=== PATIENT | male | born 1960 | race African-American/Black ===

== ENCOUNTER 2022-07-10 04:19 | Inpatient (IN) ==
[2022-07-10 05:34] LABS: Basophils # (auto) 0.04 K/uL (0-0.2); Basophils % (auto) 0.3 %; Eosinophils # (auto) 0.02 K/uL (0-0.50); Eosinophils % (auto) 0.1 %; Hematocrit (blood only) 45.6 % (42.0-52.0); Hemoglobin 16.1 g/dl (14.0-18.0); Immature Granulocytes # (auto) 0.13 K/uL (0.01-0.20); Lymphocytes # (auto) 1.89 K/uL (1.2-3.4); Lymphocytes % (auto) 14.1 %; Mean Corpuscular Hemoglobin 32.4 pg (25.0-34.0); Mean Corpuscular Hgb Conc 35.3 g/dL (32.0-36.0); Mean Corpuscular Volume 91.8 fL (80.0-100.0); Mean Platelet Volume 9.1 fL (9.4-12.4); Monocytes # (auto) 0.68 K/uL (0.11-0.59); Monocytes % (auto) 5.1 %; Neutrophils # (auto) 10.61 K/uL (1.40-6.50); Neutrophils % (auto) 79.4 %; Platelet Count 288 K/uL (130-400); RDW Coefficient of Variation 12.3 % (11.5-14.5); Red Blood Count 4.97 M/uL (4.70-6.10); White Blood Count 13.37 K/ul (4.8-10.8)
[2022-07-10 05:41] LABS: Albumin Level 3.4 gm/dl (3.4-5.0); BUN Creatinine Ratio 4.5 (10-20); Bilirubin,Total 0.8 mg/dl (0.2-1.0); Calcium 8.6 mg/dl (8.6-10.3); Creatinine Clr Calc Pharmacy 85.3 ml/min; Est GFR (African American) 105.5 ml/min; Globulin 3.4 gm/dl (2.5-4.0); Potassium 3.2 mmol/L (3.5-5.1); Total Protein 6.8 gm/dl (6.0-8.3)
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
[2022-07-10] MEDS ORDERED: SODIUM CHLORIDE 0.9% 1000ML 1,000 ML IV ONE (05:55)
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
[2022-07-10] MEDS ORDERED: POTASSIUM CHLORIDE CRTAB 20 MEQ TABCR PO STA (08:30)
[2022-07-10 08:54] LABS: Appearance Urine Clear (Clear); Bilirubin Urine Negative (Negative); Blood Urine Negative (Negative); Color Urine Yellow; Glucose Urine UA Negative (Negative); Ketones Urine Negative (Negative); Leukocyte Esterase Urine Negative (Negative); Nitrite Urine Negative (Negative); Protein Urine Negative (Negative); Specific Gravity Urine 1.002 (1.000-1.030); Urobilinogen Urine Negative (Negative)
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
[2022-07-10] MEDS ORDERED: MAGNESIUM HYDROXIDE SUSP 30 ML UDC PO PRN (11:58)
[2022-07-10] MEDS ORDERED: ALUMINUM/MAGNESIUM SUSP 30 ML UDC PO PRN (11:58)
[2022-07-10] MEDS ORDERED: POLYETHYLENE (MIRALAX) 17 GM PACK PO PRN (11:58)
[2022-07-10] MEDS ORDERED: ACETAMINOPHEN 325 MG TAB PO PRN (11:58)
[2022-07-10] MEDS ORDERED: ONDANSETRON INJ 2 MG/ML 2 ML VIAL IV PRN (11:58)
--- NOTE | 2022-07-10 12:27 | Ultrasound Report ---
CAROTID ARTERY ULTRASOUND CLINICAL HISTORY: Syncope. COMPARISON STUDY: None. TECHNIQUE: Real-time, grayscale, and color Doppler sonography of the carotid and vertebral arteries w as performed. Images were viewed in the transverse and longitudinal planes. FINDINGS: There is moderate atherosclerotic plaque, greatest within the proximal to mid left internal carotid a rtery. Velocity measurements are listed below. COMMON CAROTID PEAK SYSTOLIC VELOCITY (CM/S): RIGHT 88 LEFT 115 ICA PEAK SYSTOLIC VELOCITY (CM/S): RIGHT 97 LEFT 294 Systolic ratio between the left internal to common carotid artery is elevated at 2.6. Antegrade flow is seen in the vertebral arteries. The external carotid arteries are patent. IMPRESSION: 1. Findings suggestive of approximate 70% stenosis of the proximal left internal carotid artery. 2. No evidence for a stenosis within the right internal carotid artery. ACT 112: Negative or not required by law. Electronically signed by: Clive Drummond M.D. 07/10/2022 12:26 PM
[2022-07-10 13:18] LABS: Amphetamines+Metham, Urine Neg (Neg); Barbiturates, Urine Neg (Neg); Benzodiazepine, Urine Neg (Neg); Cocaine, Urine Neg (Neg); MDMA (Ecstacy), Urine Neg (Neg); Methadone, Urine Neg (Neg); Opiate, Urine Neg (Neg); Phencyclidine, Urine Neg (Neg)
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
[2022-07-10 14:45] LABS: Estimated Average Glucose 100 mg/dl; Hemoglobin A1C 5.1 % (4.5-5.6)
[2022-07-10] MEDS: SODIUM CHLORIDE 0.9% 1000ML 1,000 ML IV SCH (16:44)
--- NOTE | 2022-07-10 22:19 | XCELERA ---
[id number]
--- NOTE | 2022-07-10 23:09 | Electrocardiogram Report ---
Test Reason : Blood Pressure : / mmHG Vent. Rate : 126 BPM Atrial Rate : 126 BPM P-R Int : 122 ms QRS Dur : 078 ms QT Int : 310 ms P-R-T Axes : 065 061 047 degrees QTc Int : 448 ms Sinus tachycardia with Premature supraventricular complexes Possible Left atrial enlargement Septal infarct , age undetermined Nonspecific ST abnormality Abnormal ECG No previous ECGs available Confirmed by Bhanu Wei ([id number]) on 07/10/2022 11:09:05 PM Referred By: REFERRED SELF Confirmed By:Bhanu Wei
[2022-07-11] MEDS: NICOTINE 21 MG/24 HR TDSY TD SCH ×2 (00:44→09:04)
[2022-07-11] MEDS: SODIUM CHLORIDE 0.9% 1000ML 1,000 ML IV SCH ×3 (02:01→23:30)
--- NOTE | 2022-07-11 04:52 | Electrocardiogram Report ---
Test Reason : Blood Pressure : / mmHG Vent. Rate : 098 BPM Atrial Rate : 098 BPM P-R Int : 122 ms QRS Dur : 076 ms QT Int : 354 ms P-R-T Axes : 069 065 067 degrees QTc Int : 451 ms Poor data quality, interpretation may be adversely affected Normal sinus rhythm Possible Left atrial enlargement Borderline ECG When compared with ECG of 10-JUL-2022 04:28, Premature supraventricular complexes are no longer Present Confirmed by Bhanu Wei ([id number]) on 07/11/2022 4:51:54 AM Referred By: REFERRED SELF Confirmed By:Bhanu Wei
[2022-07-11 06:16] LABS: Basophils # (auto) 0.02 K/uL (0-0.2); Basophils % (auto) 0.1 %; Eosinophils # (auto) 0.01 K/uL (0-0.50); Eosinophils % (auto) 0.1 %; Hematocrit (blood only) 42.9 % (42.0-52.0); Hemoglobin 14.5 g/dl (14.0-18.0); Immature Granulocytes # (auto) 0.14 K/uL (0.01-0.20); Immature Granulocytes % (auto) 0.9 %; Lymphocytes # (auto) 1.32 K/uL (1.2-3.4); Lymphocytes % (auto) 8.1 %; Mean Corpuscular Hemoglobin 31.8 pg (25.0-34.0); Mean Corpuscular Hgb Conc 33.8 g/dL (32.0-36.0); Mean Corpuscular Volume 94.1 fL (80.0-100.0); Mean Platelet Volume 8.8 fL (9.4-12.4); Monocytes # (auto) 0.72 K/uL (0.11-0.59); Monocytes % (auto) 4.4 %; Neutrophils # (auto) 14.05 K/uL (1.40-6.50); Neutrophils % (auto) 86.4 %; Platelet Count 270 K/uL (130-400); RDW Coefficient of Variation 12.6 % (11.5-14.5); Red Blood Count 4.56 M/uL (4.70-6.10); White Blood Count 16.26 K/ul (4.8-10.8)
[2022-07-11 06:27] LABS: BUN Creatinine Ratio 4.3 (10-20); Calcium 8.1 mg/dl (8.6-10.3); Creatinine Clr Calc Pharmacy 110.2 ml/min; Est GFR (African American) 116.4 ml/min; Est GFR (Non-African American) 100.4 ml/min; Magnesium 1.6 mg/dl (1.7-2.4); Potassium 3.6 mmol/L (3.5-5.1)
[2022-07-11] MEDS ORDERED: MAGNESIUM SULFATE / D5W 1 GM/100 ML BAG IV ONE (08:30)
[2022-07-11] MEDS: ENOXAPARIN INJ 40 MG/0.4 ML SYR SQ SCH (09:05)
--- NOTE | 2022-07-11 14:00 | Electroencephalogram ---
EEG Procedure Note Date of Service July 11, 2022 Start / End Times Start Time: 1051 End Time: 1111 Referring Physician Shauna Ferris PA-C History 62-year-old with new onset syncope and Home Medication List Medication Instructions Recorded Confirmed Type No Known Home Medications 07/10/22 07/10/22 History Inpatient Medication List Enoxaparin Sodium (Enoxaparin Inj 40 Mg/0.4 Ml Syr) 40 mg SQ QAM CECI Stop: 08/10/22 08:59 Last Admin: 07/11/22 09:05 Dose: Not Given Documented By: MOLLY Sodium Chloride (Nss 1000ml) 1,000 mls @ 100 mls/hr IV .Q10H CECI Stop: 08/09/22 11:57 Last Admin: 07/11/22 13:24 Dose: 100 mls/hr Documented By: Infusion: 07/11/22 12:01 Dose: 100 mls/hr Documented By: Admin: 07/11/22 02:01 Dose: 100 mls/hr Documented By: Infusion: 07/11/22 02:00 Dose: 100 mls/hr Documented By: Admin: 07/10/22 16:44 Dose: 100 mls/hr Documented By: MOLLY Miscellaneous (Remove Nicoderm Patch) 1 each N/A DAILY@0859 [facility] Stop: 08/10/22 08:58 Last Admin: 07/11/22 09:06 Dose: Not Given Documented By: MOLLY Nicotine (Nicotine 21 Mg/24 Hr Tdsy) 21 mg TD QAM CECI Stop: 08/09/22 11:57 Last Admin: 07/11/22 09:04 Dose: 21 mg Documented By: Admin: 07/11/22 00:44 Dose: Not Given Documented By: MARIETTA Discontinued Medications Sodium Chloride (Nss 1000ml) 1,000 mls @ 999 mls/hr IV .Q1H1M ONE Stop: 07/10/22 06:55 Last Infusion: 07/10/22 07:41 Dose: 0 mls/hr Documented By: Admin: 07/10/22 06:05 Dose: 999 mls/hr Documented By: JOSE JUAN Magnesium Sulfate/Dextrose (Magnesium Sulfate / D5w) 1 gm in 100 mls @ 50 mls/hr IV ONE ONE Stop: 04/28/23 10:29 Last Infusion: 07/11/22 11:02 Dose: 0 mls/hr Documented By: Admin: 07/11/22 09:04 Dose: 50 mls/hr Documented By: MOLLY Potassium Chloride (Potassium Chloride Crtab 20 Meq Tabcr) 40 meq PO NOW STA Stop: 07/10/22 08:31 Last Admin: 07/10/22 08:39 Dose: 40 meq Documented By: MODESTA Description This is a 21 electrode EEG with a single channel dedicated to limited EKG. The electrodes were placed in accordance with the International 10-20 system. Interpretation The predominant background activity consists of a very well modulated 10 Hz activity, of up to 50 mV in amplitude,seen symmetrically distributed over the posterior head regions bilaterally. This activity attenuates nicely with eye- opening and other alerting procedures. Photic stimulation was performed and elicited no change in the background activity and no abnormal responses were seen. Hyperventilation was not performed. A minimal amount of muscle and movement artifact activity contaminated the recording and did not hinder interpretation to any significant degree. Throughout the waking portion of the recording, no focal abnormalities, abnormal slow activity, or potentially epileptogenic discharges are seen. The patient entered the drowsy state with no further activation. In summary, this EEG was normal during wakefulness and drowsiness. No focal abnormalities, potentially epileptogenic discharges, or abnormal slow activity was seen. Clinical Correlation The abscence of potentially epileptogenic activity does not exclude a seizure disorder, since interictally, EEGs can be normal. Clinical correlation is required. [facility] EEG Procedure Codes Indication for Procedure (1) Syncope: Neurology Neurology: 36452 EEG include record awake & drowsy
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
[2022-07-11] MEDS ORDERED: Nursing to Pharmacy Communication SCH (23:45)
[2022-07-12] MEDS ORDERED: OPTIRAY 320 500ml IV ONE (09:02)
--- NOTE | 2022-07-12 09:57 | CT Scan Report ---
CT ANGIOGRAM OF THE CHEST CLINICAL HISTORY: Syncope. Dyspnea. Leukocytosis. COMPARISON STUDY: Chest x-ray dated 07/10/2022. TECHNIQUE: Following the IV administration of 120 cc of Optiray 320, CT angiogram of the chest was pe rformed from the upper abdomen to the thoracic inlet utilizing the pulmonary embolus protocol. Images are reviewed in the axial, sagittal, and coronal planes. 3-D MIPS images are created and assessed. I V contrast was administered without complication. A dose lowering technique was utilized adhering to the principles of ALARA. CT DOSE: 255.95 mGy.cm FINDINGS: Thyroid: Mildly enlarged and heterogeneous. Thoracic aorta: There is atherosclerotic calcification of the thoracic aorta, which is normal in tiffany carlo and demonstrates standard 3-vessel arch anatomy. No dissection is seen. Pulmonary vasculature: The pulmonary trunk is normal in caliber. There are no filling defects identif ied in main, lobar, or segmental pulmonary branches to suggest pulmonary embolus. Heart: The heart is normal in size and without pericardial effusion. There are scattered coronary art symone calcifications. Lungs and pleural spaces: Emphysematous change is noted. There is patchy ground glass consolidation i dentified in the lingula. Trace pleural effusions are noted. The trachea is clear. Secretions/debris are present in the left mainstem bronchus. Diffuse peribronchial thickening is observed. A millimeter irregular opacity seen in the right lower lobe on image #138. Mediastinum: A prominent subcarinal node measures 11 mm in short axis. Priya: Clear. Axillae: There is no axillary lymphadenopathy. Upper abdomen: A small hiatal hernia is noted. Calcified granulomas are present in the spleen. Skeletal structures: No lytic or blastic bony lesions are seen. There is chronic deformity of the rig ht posterior ribs. Degenerative changes noted at the sternoclavicular joints. IMPRESSION: 1. There is no evidence of pulmonary embolus in the main, lobar, or segmental pulmonary arteries. 2. Emphysema. 3. There is patchy groundglass consolidation in the lingula. This likely represents pneumonia/aspirat ion pneumonitis. Clinical correlation will be required and radiographic follow-up to resolution is re commended. 4. Secretions/debris are present in the left mainstem bronchus. 5. Trace pleural effusions. 6. There is an 8 mm irregular opacity in the right lower lobe which may represent atelectasis. A 3-mo nth follow-up chest CT is recommended for reassessment. 7. Diffuse peribronchial thickening suggests bronchitis/reactive airway disease. Correlate clinically . 8. Additional findings as above. ACT 112: Positive. There are findings on this exam that require communication between the performing entity and the patient following Patient Test Result Information Act ([place] Act 112) guidelines. Electronically signed by: Marvin Ceballos M.D. 07/12/2022 9:55 AM
[2022-07-12] MEDS: NICOTINE 21 MG/24 HR TDSY TD SCH (11:17)
[2022-07-12] MEDS: ENOXAPARIN INJ 40 MG/0.4 ML SYR SQ SCH (11:17)
[2022-07-12] MEDS: SODIUM CHLORIDE 0.9% 1000ML 1,000 ML IV SCH (11:18)
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
--- NOTE | 2022-07-14 12:43 | Coding Query ---
CODING QUERY To promote full compliance with coding requirements relating to patient care, provider participation is requested in all cases of wiping rag washer uncertainty. Please assist us with the question(s) below: Coding Question(s): Please specify below, in your clinical opinion, the most likely cause of Syncope: ( xxxx ) Syncope, Unspecified/Unknown most likely cause ( ) Syncope, most likely due to Left ICA Stenosis ( ) Syncope, most likely due to Other: Please Specify Physician's Response(s): Thank you Didi Richmond Principal Diagnosis: "that condition established after study, to be chiefly responsible for occasioning the admission of the patient to the hospital for care." Co-Existing Principal Diagnosis: "when two or more diagnoses equally meet the criteria for principal diagnosis as determined by the circumstances of admission, diagnostic work up, and/or therapy provided, and the Alphabetic Index, Tabular List, or another coding guideline does not provide sequencing direction, any one of the diagnoses may be sequenced first." "When the physician has documented what appears to be a current diagnosis in the body of the record, but has not included the diagnosis in the final diagnostic statement, the physician should be asked whether the diagnosis should be added." (Source Coding Clinic 2 QTR90. p3-4) JERRY
== END 2022-07-12 14:43 | disposition home or self-care (01) | DRG 312 ==
LOC: ED 04:19 → EDINP 08:29 → 2N 11:55